=== PATIENT | male | born 1950 | race African-American/Black ===

== ENCOUNTER 2017-12-01 01:59 | Inpatient (IN) ==
[2017-12-01] MEDS ORDERED: hydrALAZINE 20 MG/1 ML VIAL IV STA (02:23)
[2017-12-01] MEDS ORDERED: ALBUTEROL/IPRATROPIUM 3 ML NEB RESP TX STA (02:23)
[2017-12-01] MEDS ORDERED: methylPREDNISolone SOD SUC 125 MG/2 ML VIAL IV STA (02:24)
[2017-12-01 02:57] LABS: Basophils % 0.4 % (0.0-0.8); Eosinophils % 0.4 % (0.00-10.9); Hematocrit 40.8 VOL% (42.0-52.0); Hemoglobin 13.5 GM/DL (14.0-18.0); Immature Granulocytes % 0.4 %; Immature Granulocytes Absolute 0.03 #; Lymphocytes # 1.4 10*3/uL (1.4-4.0); Lymphocytes % 18.2 % (21.2-54.2); Mean Corpuscular HGB Conc 33.1 GM/DL (32-36); Mean Corpuscular Hemoglobin 32 PG (27-34); Mean Corpuscular Volume 96.7 FL (87-102); Mean Platelet Volume 10.8 FL (9.6-12.0); Monocytes # 0.9 10*3/uL (0.11-0.8); Monocytes % 12.6 % (1.7-12.7); Platelet Count 248 T/CUMM (130-400); Red Blood Count 4.22 MC/CUMM (3.8-5.5); Red Cell Distribution Width 14.3 % (9.3-17.3); White Blood Count 7.4 T/CUMM (4-12)
[2017-12-01 02:58] LABS: Albumin 4.1 G/DL (3.4-5.0); Calcium 8.7 MG/DL (8.5-10.1); Osmolality,Calculated 273.7 MOS/KG (273-304); Potassium 3.1 MMOL/L (3.5-5.1)
[2017-12-01] MEDS ORDERED: cefTRIAXone 1,000 MG in SODIUM CHLORIDE 0.9% 100 ML IV STA (03:43)
[2017-12-01] MEDS ORDERED: AZITHROMYCIN 250 MG TABLET PO STA (03:44)
[2017-12-01] MEDS ORDERED: ZALEPLON 5 MG CAPSULE PO PRN (04:40)
[2017-12-01] MEDS ORDERED: MAGNESIUM SULF RIDER 4 GM in PREMIX 1 EACH IV PRN (04:40)
[2017-12-01] MEDS ORDERED: hydrALAZINE 20 MG/1 ML VIAL IV PRN (04:40)
[2017-12-01] MEDS ORDERED: ONDANSETRON 4 MG/2 ML VIAL IV PRN (04:40)
[2017-12-01] MEDS ORDERED: MAGNESIUM SULF RIDER 2 GM in PREMIX 1 EACH IV PRN (04:40)
[2017-12-01] MEDS ORDERED: ALBUTEROL 2.5 MG/3 ML NEB RESP TX PRN (04:40)
[2017-12-01] MEDS ORDERED: ACETAMINOPHEN 325 MG TABLET PO PRN (04:40)
[2017-12-01] MEDS: ALBUTEROL/IPRATROPIUM 3 ML NEB RESP TX SCH ×3 (06:49→19:15)
[2017-12-01] MEDS ORDERED: POTASSIUM CHLORIDE 20 MEQ TABLET PO ONE (09:00)
[2017-12-01] MEDS: predniSONE 20 MG TABLET PO SCH (09:10)
[2017-12-01] MEDS: THIAMINE 100 MG TABLET PO SCH (09:10)
[2017-12-01] MEDS: MULTIVITAMIN (CENTRUM) TABLET PO SCH (09:11)
[2017-12-01] MEDS: amLODIPine 5 MG TABLET PO SCH (09:11)
[2017-12-01] MEDS: ENOXAPARIN 40 MG/0.4 ML SYRINGE SUBCUT SCH (09:11)
[2017-12-01] MEDS: FOLIC ACID 1 MG TABLET PO SCH (09:11)
[2017-12-01] MEDS: PANTOPRAZOLE 40 MG TABLET PO SCH (09:11)
[2017-12-01] MEDS: FUROSEMIDE 20 MG/2 ML VIAL IV SCH ×2 (09:12→15:25)
[2017-12-02] MEDS: ALBUTEROL/IPRATROPIUM 3 ML NEB RESP TX SCH ×4 (00:18→19:17)
[2017-12-02 06:14] LABS: Basophils % 0.3 % (0.0-0.8); Eosinophils % 0.1 % (0.00-10.9); Hematocrit 36.6 VOL% (42.0-52.0); Immature Granulocytes % 0.5 %; Immature Granulocytes Absolute 0.04 #; Lymphocytes # 1.3 10*3/uL (1.4-4.0); Lymphocytes % 16.7 % (21.2-54.2); Mean Corpuscular HGB Conc 32.8 GM/DL (32-36); Mean Corpuscular Hemoglobin 31 PG (27-34); Mean Corpuscular Volume 95.3 FL (87-102); Mean Platelet Volume 11.6 FL (9.6-12.0); Monocytes % 12.2 % (1.7-12.7); Neutrophils # 5.6 10*3/uL (1.4-7.4); Neutrophils % 70.2 % (38.7-73.9); Platelet Count 213 T/CUMM (130-400); Red Blood Count 3.84 MC/CUMM (3.8-5.5); Red Cell Distribution Width 14.4 % (9.3-17.3)
[2017-12-02 06:33] LABS: Albumin 3.5 G/DL (3.4-5.0); Bilirubin,Total 0.7 MG/DL (0.2-1.0); Osmolality,Calculated 273.7 MOS/KG (273-304)
[2017-12-02] MEDS: predniSONE 20 MG TABLET PO SCH (08:25)
[2017-12-02] MEDS: FOLIC ACID 1 MG TABLET PO SCH (08:25)
[2017-12-02] MEDS: MULTIVITAMIN (CENTRUM) TABLET PO SCH (08:25)
[2017-12-02] MEDS: amLODIPine 5 MG TABLET PO SCH (08:25)
[2017-12-02] MEDS: PANTOPRAZOLE 40 MG TABLET PO SCH (08:25)
[2017-12-02] MEDS: THIAMINE 100 MG TABLET PO SCH (08:25)
[2017-12-02] MEDS: POTASSIUM CHLORIDE 20 MEQ TABLET PO PRN ×4 (08:26→14:53)
[2017-12-02] MEDS: ENOXAPARIN 40 MG/0.4 ML SYRINGE SUBCUT SCH (08:26)
[2017-12-02] MEDS: cefTRIAXone 1,000 MG in SYRINGE 1 EACH IV SCH (08:32)
[2017-12-02] MEDS: FUROSEMIDE 20 MG/2 ML VIAL IV SCH ×2 (08:34→16:46)
[2017-12-02] MEDS: AZITHROMYCIN INJ 500 MG in SODIUM CHLORIDE 0.9% 250 ML IV SCH (08:35)
[2017-12-03] MEDS: ALBUTEROL/IPRATROPIUM 3 ML NEB RESP TX SCH ×4 (00:31→19:34)
[2017-12-03] MEDS: FOLIC ACID 1 MG TABLET PO SCH (08:25)
[2017-12-03] MEDS: predniSONE 20 MG TABLET PO SCH (08:25)
[2017-12-03] MEDS: AZITHROMYCIN INJ 500 MG in SODIUM CHLORIDE 0.9% 250 ML IV SCH (08:25)
[2017-12-03] MEDS: THIAMINE 100 MG TABLET PO SCH (08:25)
[2017-12-03] MEDS: amLODIPine 5 MG TABLET PO SCH (08:25)
[2017-12-03] MEDS: PANTOPRAZOLE 40 MG TABLET PO SCH (08:25)
[2017-12-03] MEDS: MULTIVITAMIN (CENTRUM) TABLET PO SCH (08:25)
[2017-12-03] MEDS: FUROSEMIDE 20 MG/2 ML VIAL IV SCH ×2 (08:25→16:52)
[2017-12-03] MEDS: ENOXAPARIN 40 MG/0.4 ML SYRINGE SUBCUT SCH (08:27)
[2017-12-03] MEDS: cefTRIAXone 1,000 MG in SYRINGE 1 EACH IV SCH (08:29)
[2017-12-04] MEDS: ALBUTEROL/IPRATROPIUM 3 ML NEB RESP TX SCH ×4 (00:16→19:12)
[2017-12-04 05:22] LABS: Basophils % 0.1 % (0.0-0.8); Eosinophils % 0.3 % (0.00-10.9); Hemoglobin 11.8 GM/DL (14.0-18.0); Immature Granulocytes % 0.4 %; Immature Granulocytes Absolute 0.03 #; Lymphocytes # 1.3 10*3/uL (1.4-4.0); Lymphocytes % 18.2 % (21.2-54.2); Mean Corpuscular HGB Conc 32.8 GM/DL (32-36); Mean Corpuscular Hemoglobin 32 PG (27-34); Mean Corpuscular Volume 96.3 FL (87-102); Mean Platelet Volume 11.1 FL (9.6-12.0); Monocytes # 0.8 10*3/uL (0.11-0.8); Monocytes % 11.6 % (1.7-12.7); Neutrophils % 69.4 % (38.7-73.9); Platelet Count 175 T/CUMM (130-400); Red Blood Count 3.74 MC/CUMM (3.8-5.5); Red Cell Distribution Width 14.4 % (9.3-17.3); White Blood Count 7.2 T/CUMM (4-12)
[2017-12-04 05:35] LABS: Calcium 8.5 MG/DL (8.5-10.1); Osmolality,Calculated 277.7 MOS/KG (273-304); Potassium 3.4 MMOL/L (3.5-5.1)
[2017-12-04] MEDS: POTASSIUM CHLORIDE 20 MEQ TABLET PO PRN ×3 (08:29→14:28)
[2017-12-04] MEDS: AZITHROMYCIN 250 MG TABLET PO SCH (08:29)
[2017-12-04] MEDS: predniSONE 20 MG TABLET PO SCH (08:30)
[2017-12-04] MEDS: FOLIC ACID 1 MG TABLET PO SCH (08:30)
[2017-12-04] MEDS: THIAMINE 100 MG TABLET PO SCH (08:30)
[2017-12-04] MEDS: MULTIVITAMIN (CENTRUM) TABLET PO SCH (08:30)
[2017-12-04] MEDS: amLODIPine 5 MG TABLET PO SCH (08:30)
[2017-12-04] MEDS: PANTOPRAZOLE 40 MG TABLET PO SCH (08:30)
[2017-12-04] MEDS: ENOXAPARIN 40 MG/0.4 ML SYRINGE SUBCUT SCH (08:30)
[2017-12-04] MEDS: cefTRIAXone 1,000 MG in SYRINGE 1 EACH IV SCH (08:30)
[2017-12-04] MEDS: FUROSEMIDE 20 MG/2 ML VIAL IV SCH ×2 (08:33→17:23)
[2017-12-05] MEDS: ALBUTEROL/IPRATROPIUM 3 ML NEB RESP TX SCH ×2 (01:04→07:18)
[2017-12-05 05:22] LABS: Basophils % 0.1 % (0.0-0.8); Eosinophils % 0.4 % (0.00-10.9); Hematocrit 36.4 VOL% (42.0-52.0); Hemoglobin 11.9 GM/DL (14.0-18.0); Immature Granulocytes % 0.3 %; Immature Granulocytes Absolute 0.02 #; Lymphocytes # 1.4 10*3/uL (1.4-4.0); Lymphocytes % 20.5 % (21.2-54.2); Mean Corpuscular HGB Conc 32.7 GM/DL (32-36); Mean Corpuscular Hemoglobin 32 PG (27-34); Mean Corpuscular Volume 96.8 FL (87-102); Mean Platelet Volume 11.8 FL (9.6-12.0); Monocytes # 0.9 10*3/uL (0.11-0.8); Monocytes % 13.1 % (1.7-12.7); Neutrophils # 4.6 10*3/uL (1.4-7.4); Neutrophils % 65.6 % (38.7-73.9); Platelet Count 217 T/CUMM (130-400); Red Blood Count 3.76 MC/CUMM (3.8-5.5); Red Cell Distribution Width 14.2 % (9.3-17.3)
[2017-12-05 05:50] LABS: Calcium 9.4 MG/DL (8.5-10.1); Osmolality,Calculated 277.8 MOS/KG (273-304); Potassium 3.6 MMOL/L (3.5-5.1)
[2017-12-05 07:44] VITALS: BP 113/76
[2017-12-05] MEDS: THIAMINE 100 MG TABLET PO SCH (08:48)
[2017-12-05] MEDS: FOLIC ACID 1 MG TABLET PO SCH (08:48)
[2017-12-05] MEDS: amLODIPine 5 MG TABLET PO SCH (08:48)
[2017-12-05] MEDS: predniSONE 20 MG TABLET PO SCH (08:48)
[2017-12-05] MEDS: PANTOPRAZOLE 40 MG TABLET PO SCH (08:49)
[2017-12-05] MEDS: ENOXAPARIN 40 MG/0.4 ML SYRINGE SUBCUT SCH (08:49)
[2017-12-05] MEDS: FUROSEMIDE 20 MG/2 ML VIAL IV SCH (08:49)
[2017-12-05] MEDS: AZITHROMYCIN 250 MG TABLET PO SCH (08:49)
[2017-12-05] MEDS: MULTIVITAMIN (CENTRUM) TABLET PO SCH (08:49)
[2017-12-05] MEDS: cefTRIAXone 1,000 MG in SYRINGE 1 EACH IV SCH (08:52)
== END 2017-12-05 11:28 | disposition home or self-care (01) | DRG 291 ==
LOC: N.ED 01:59 → N.EDINP 04:40 → N.2E 05:09
PROVIDERS: ADMIT Internal Medicine; ATTEND Internal Medicine

== ENCOUNTER 2017-12-21 09:57 | Inpatient (IN) ==
[2017-12-21] MEDS ORDERED: ALBUTEROL NEB SOLN 5 MG/ML 20 ML/BOTTLE CONT NEB STA (10:51)
[2017-12-21] MEDS ORDERED: methylPREDNISolone SOD SUC 125 MG/2 ML VIAL IV STA (10:51)
[2017-12-21 11:20] LABS: Basophils % 0.3 % (0.0-0.8); Hematocrit 45.6 VOL% (42.0-52.0); Hemoglobin 15.3 GM/DL (14.0-18.0); Immature Granulocytes % 0.3 %; Immature Granulocytes Absolute 0.02 #; Lymphocytes # 0.7 10*3/uL (1.4-4.0); Lymphocytes % 11.4 % (21.2-54.2); Mean Corpuscular HGB Conc 33.6 GM/DL (32-36); Mean Corpuscular Hemoglobin 31 PG (27-34); Mean Corpuscular Volume 92.7 FL (87-102); Mean Platelet Volume 10.5 FL (9.6-12.0); Monocytes # 0.4 10*3/uL (0.11-0.8); Monocytes % 7.1 % (1.7-12.7); Neutrophils # 4.8 10*3/uL (1.4-7.4); Neutrophils % 80.9 % (38.7-73.9); Platelet Count 171 T/CUMM (130-400); Red Blood Count 4.92 MC/CUMM (3.8-5.5); Red Cell Distribution Width 14.4 % (9.3-17.3); White Blood Count 5.9 T/CUMM (4-12)
[2017-12-21 12:34] LABS: Alanine Aminotransferase 53 U/L (16-61); Albumin 3.9 G/DL (3.4-5.0); Alkaline Phosphatase 72 U/L (45-117); Aspartate Amino Transferase 99 U/L (0-37); Bilirubin,Total < 0.39 MG/DL (0.2-1.0); Blood Urea Nitrogen 16 MG/DL (7-18); Calcium 9.3 MG/DL (8.5-10.1); Glucose 91 MG/DL (74-106); Potassium 3.9 MMOL/L (3.5-5.1); Sodium 136 MMOL/L (136-145); Total Protein 8.3 G/DL (6.4-8.3)
[2017-12-21] MEDS ORDERED: ACETAMINOPHEN 325 MG TABLET PO PRN (13:25)
[2017-12-21] MEDS ORDERED: ZALEPLON 5 MG CAPSULE PO PRN (13:25)
[2017-12-21] MEDS ORDERED: ONDANSETRON 4 MG/2 ML VIAL IV PRN (13:25)
[2017-12-21] MEDS ORDERED: ALBUTEROL/IPRATROPIUM 3 ML NEB RESP TX PRN (13:34)
[2017-12-21] MEDS ORDERED: PNEUMOCOCCAL VACCINE (13 VALENT) 0.5 ML SYRINGE IM ONE (15:25)
[2017-12-21] MEDS ORDERED: INFLUENZA VIRUS VACCINE 0.5 ML SYRINGE IM ONE (15:25)
[2017-12-21] MEDS: ENOXAPARIN 40 MG/0.4 ML SYRINGE SUBCUT SCH (17:06)
[2017-12-21] MEDS: DOXYCYCLINE HYCLATE 100 MG CAPSULE PO SCH ×2 (17:06→21:43)
[2017-12-21] MEDS: methylPREDNISolone SOD SUC 125 MG/2 ML VIAL IV SCH ×2 (17:06→21:43)
[2017-12-21] MEDS: ALBUTEROL/IPRATROPIUM 3 ML NEB RESP TX SCH (19:19)
[2017-12-21] MEDS: DOCUSATE SODIUM 100 MG CAPSULE PO SCH (21:43)
[2017-12-22] MEDS: ALBUTEROL/IPRATROPIUM 3 ML NEB RESP TX SCH ×4 (01:16→18:55)
[2017-12-22 04:25] LABS: Basophils % 0.2 % (0.0-0.8); Hematocrit 40.3 VOL% (42.0-52.0); Hemoglobin 13.4 GM/DL (14.0-18.0); Immature Granulocytes % 0.4 %; Immature Granulocytes Absolute 0.02 #; Lymphocytes # 0.6 10*3/uL (1.4-4.0); Lymphocytes % 11.2 % (21.2-54.2); Mean Corpuscular HGB Conc 33.3 GM/DL (32-36); Mean Corpuscular Hemoglobin 31 PG (27-34); Mean Corpuscular Volume 92.4 FL (87-102); Mean Platelet Volume 10.6 FL (9.6-12.0); Monocytes # 0.4 10*3/uL (0.11-0.8); Monocytes % 7.7 % (1.7-12.7); Neutrophils # 4.1 10*3/uL (1.4-7.4); Neutrophils % 80.5 % (38.7-73.9); Platelet Count 144 T/CUMM (130-400); Red Blood Count 4.36 MC/CUMM (3.8-5.5); Red Cell Distribution Width 14.4 % (9.3-17.3); White Blood Count 5.1 T/CUMM (4-12)
[2017-12-22 04:52] LABS: Albumin 3.6 G/DL (3.4-5.0); Bilirubin,Total 0.4 MG/DL (0.2-1.0); Calcium 9.6 MG/DL (8.5-10.1); Osmolality,Calculated 277.8 MOS/KG (273-304); Potassium 3.7 MMOL/L (3.5-5.1); Total Protein 7.5 G/DL (6.4-8.3)
[2017-12-22] MEDS: methylPREDNISolone SOD SUC 125 MG/2 ML VIAL IV SCH (06:19)
[2017-12-22] MEDS: THIAMINE 100 MG TABLET PO SCH (08:26)
[2017-12-22] MEDS: MULTIVITAMIN (CENTRUM) TABLET PO SCH (08:26)
[2017-12-22] MEDS: DOCUSATE SODIUM 100 MG CAPSULE PO SCH ×2 (08:26→21:49)
[2017-12-22] MEDS: FOLIC ACID 1 MG TABLET PO SCH (08:26)
[2017-12-22] MEDS: DOXYCYCLINE HYCLATE 100 MG CAPSULE PO SCH ×2 (08:26→21:49)
[2017-12-22] MEDS: amLODIPine 5 MG TABLET PO SCH (08:26)
[2017-12-22] MEDS: ENOXAPARIN 40 MG/0.4 ML SYRINGE SUBCUT SCH (08:27)
[2017-12-22] MEDS: PANTOPRAZOLE 40 MG TABLET PO SCH (08:27)
[2017-12-22] MEDS ORDERED: PANTOPRAZOLE 40 MG TABLET PO SCH (09:00)
[2017-12-22] MEDS: methylPREDNISolone SOD SUC 40 MG/1 ML VIAL IV SCH ×2 (14:15→21:49)
[2017-12-22] MEDS: CEFEPIME 1,000 MG in SODIUM CHLORIDE 0.9% 100 ML IV SCH (14:18)
[2017-12-23] MEDS: ALBUTEROL/IPRATROPIUM 3 ML NEB RESP TX SCH ×4 (00:05→19:16)
[2017-12-23] MEDS: methylPREDNISolone SOD SUC 40 MG/1 ML VIAL IV SCH (06:25)
[2017-12-23] MEDS: THIAMINE 100 MG TABLET PO SCH (09:13)
[2017-12-23] MEDS: PANTOPRAZOLE 40 MG TABLET PO SCH (09:13)
[2017-12-23] MEDS: MULTIVITAMIN (CENTRUM) TABLET PO SCH (09:13)
[2017-12-23] MEDS: DOXYCYCLINE HYCLATE 100 MG CAPSULE PO SCH ×2 (09:13→23:03)
[2017-12-23] MEDS: FOLIC ACID 1 MG TABLET PO SCH (09:13)
[2017-12-23] MEDS: amLODIPine 5 MG TABLET PO SCH (09:14)
[2017-12-23] MEDS: CEFEPIME 1,000 MG in SODIUM CHLORIDE 0.9% 100 ML IV SCH ×2 (09:14→23:02)
[2017-12-23] MEDS: DOCUSATE SODIUM 100 MG CAPSULE PO SCH ×2 (09:14→23:02)
[2017-12-23] MEDS: ENOXAPARIN 40 MG/0.4 ML SYRINGE SUBCUT SCH (09:14)
[2017-12-23] MEDS: predniSONE 20 MG TABLET PO SCH (11:03)
[2017-12-24] MEDS: ALBUTEROL/IPRATROPIUM 3 ML NEB RESP TX SCH ×2 (00:40→07:29)
[2017-12-24 05:31] LABS: Hemoglobin 12.4 GM/DL (14.0-18.0); Immature Granulocytes % 0.4 %; Immature Granulocytes Absolute 0.03 #; Lymphocytes # 1.5 10*3/uL (1.4-4.0); Lymphocytes % 20.4 % (21.2-54.2); Mean Corpuscular HGB Conc 32.6 GM/DL (32-36); Mean Corpuscular Hemoglobin 30 PG (27-34); Mean Corpuscular Volume 92.5 FL (87-102); Mean Platelet Volume 11.7 FL (9.6-12.0); Monocytes # 0.8 10*3/uL (0.11-0.8); Neutrophils # 5.1 10*3/uL (1.4-7.4); Neutrophils % 68.2 % (38.7-73.9); Platelet Count 135 T/CUMM (130-400); Red Blood Count 4.11 MC/CUMM (3.8-5.5); Red Cell Distribution Width 14.3 % (9.3-17.3); White Blood Count 7.5 T/CUMM (4-12)
[2017-12-24 05:53] LABS: Osmolality,Calculated 279.5 MOS/KG (273-304); Potassium 3.2 MMOL/L (3.5-5.1)
[2017-12-24 05:54] LABS: Hypochromasia 1+
[2017-12-24 05:55] LABS: Ovalocytes Slight; Platelet Estimate Normal
[2017-12-24 07:45] VITALS: BP 126/85
[2017-12-24] MEDS: DOXYCYCLINE HYCLATE 100 MG CAPSULE PO SCH (09:03)
[2017-12-24] MEDS: FOLIC ACID 1 MG TABLET PO SCH (09:03)
[2017-12-24] MEDS: THIAMINE 100 MG TABLET PO SCH (09:03)
[2017-12-24] MEDS: predniSONE 20 MG TABLET PO SCH (09:03)
[2017-12-24] MEDS: DOCUSATE SODIUM 100 MG CAPSULE PO SCH (09:03)
[2017-12-24] MEDS: amLODIPine 5 MG TABLET PO SCH (09:03)
[2017-12-24] MEDS: MULTIVITAMIN (CENTRUM) TABLET PO SCH (09:03)
[2017-12-24] MEDS: PANTOPRAZOLE 40 MG TABLET PO SCH (09:03)
[2017-12-24] MEDS: ENOXAPARIN 40 MG/0.4 ML SYRINGE SUBCUT SCH (09:03)
[2017-12-24] MEDS: CEFEPIME 1,000 MG in SODIUM CHLORIDE 0.9% 100 ML IV SCH (09:03)
[2017-12-24] MEDS ORDERED: POTASSIUM CHLORIDE 20 MEQ TABLET PO ONE (09:37)
== END 2017-12-24 10:48 | disposition home or self-care (01) | DRG 192 ==
LOC: N.ED 09:57 → N.EDINP 13:25 → SUATTDRO 13:25 → N.2W 14:54 → N.2E 15:03
PROVIDERS: ADMIT Family Medicine; ATTEND Family Medicine

== ENCOUNTER 2019-01-09 15:54 | Inpatient (IN) ==
[2019-01-09] MEDS ORDERED: methylPREDNISolone SOD SUC 125 MG/2 ML VIAL IV STA (16:36)
[2019-01-09] MEDS ORDERED: ONDANSETRON 4 MG/2 ML VIAL IV STA (16:36)
[2019-01-09] MEDS ORDERED: FUROSEMIDE 40 MG/4 ML VIAL IV STA (16:36)
[2019-01-09] MEDS ORDERED: AZITHROMYCIN INJ 500 MG in SODIUM CHLORIDE 0.9% 250 ML IV STA (16:36)
[2019-01-09 16:51] LABS: Basophils % 0.3 % (0.0-0.8); Eosinophils # 0.1 10*3/uL (0.0-0.87); Hematocrit 35.5 VOL% (42.0-52.0); Hemoglobin 10.9 GM/DL (14.0-18.0); Immature Granulocytes % 0.3 %; Immature Granulocytes Absolute 0.02 #; Lymphocytes # 1.3 10*3/uL (1.4-4.0); Lymphocytes % 21.6 % (21.2-54.2); Mean Corpuscular HGB Conc 30.7 GM/DL (32-36); Mean Corpuscular Volume 98.9 FL (87-102); Mean Platelet Volume 10.7 FL (9.6-12.0); Monocytes % 13.5 % (1.7-12.7); Neutrophils % 63.3 % (38.7-73.9); Platelet Count 227 T/CUMM (130-400); Red Blood Count 3.59 MC/CUMM (3.8-5.5); Red Cell Distribution Width 14.6 % (9.3-17.3); White Blood Count 6.2 T/CUMM (4-12)
[2019-01-09] MEDS ORDERED: ALBUTEROL 2.5 MG/3 ML NEB RESP TX SCH (17:00)
[2019-01-09 17:13] LABS: Albumin 3.3 G/DL (3.4-5.0); Bilirubin,Total 0.5 MG/DL (0.2-1.0); Osmolality,Calculated 280.1 MOS/KG (273-304); Total Protein 7.3 G/DL (6.4-8.3)
[2019-01-09 17:14] LABS: Troponin I 0.026 NG/ML (0.00-0.045)
[2019-01-09 17:17] LABS: Hypochromasia Slight; Macrocytosis Slight; Ovalocytes Few
[2019-01-09 17:18] LABS: Platelet Estimate Adequate
[2019-01-09 17:43] LABS: Apearance,Urine CLEAR (Clear); Bacteria,Urine Occasional /HPF (Few); Bilirubin,Urine Negative (Negative); Blood, Urine Negative (Negative); Glucose,Urine (UA) Negative (Negative); Ketones,Urine Negative (Negative); Mucus,Urine Few /LPF (Occasional); Nitrite,Urine Negative (Negative); Protein,Urine Negative; RBC,Urine 1 /HPF (0-4); Urine Color Yellow (Yellow); Urine Specific Gravity 1.011 (1.001-1.035); Urine Urobilinogen < 2.0 EU/DL (0.2-1.0); WBC,Urine <1 /HPF (0-6)
[2019-01-09] MEDS ORDERED: ONDANSETRON 4 MG/2 ML VIAL IV PRN (17:56)
[2019-01-09 18:23] LABS: PT Patient Result 10.8 SECS (9.6-12.2); Partial Thromboplastin Time 23.1 SECS (20.8-36.0)
[2019-01-09] MEDS ORDERED: MAGNESIUM SULF RIDER 2 GM in PREMIX 1 EACH IV PRN (18:43)
[2019-01-09] MEDS ORDERED: MAGNESIUM SULF RIDER 4 GM in PREMIX 1 EACH IV PRN (18:43)
[2019-01-09] MEDS ORDERED: ALBUTEROL/IPRATROPIUM 3 ML NEB RESP TX SCH (19:00)
[2019-01-09] MEDS: LEVALBUTEROL 1.25 MG/3 ML NEB RESP TX SCH ×2 (19:40→23:08)
[2019-01-09] MEDS ORDERED: ENOXAPARIN 40 MG/0.4 ML SYRINGE SUBCUT SCH (21:00)
[2019-01-09] MEDS: POTASSIUM CHLORIDE 20 MEQ PACK PO SCH (21:01)
[2019-01-09] MEDS: cefTRIAXone 1,000 MG in SYRINGE 1 EACH IV SCH (21:01)
[2019-01-10] MEDS: methylPREDNISolone SOD SUC 40 MG/1 ML VIAL IV SCH ×3 (00:14→17:27)
[2019-01-10] MEDS: LEVALBUTEROL 1.25 MG/3 ML NEB RESP TX SCH ×4 (02:12→23:18)
[2019-01-10 06:56] LABS: Hematocrit 30.2 VOL% (42.0-52.0); Hemoglobin 9.3 GM/DL (14.0-18.0); Immature Granulocytes % 0.2 %; Immature Granulocytes Absolute 0.01 #; Lymphocytes # 0.4 10*3/uL (1.4-4.0); Lymphocytes % 9.1 % (21.2-54.2); Mean Corpuscular HGB Conc 30.8 GM/DL (32-36); Mean Corpuscular Volume 97.4 FL (87-102); Mean Platelet Volume 10.3 FL (9.6-12.0); Monocytes % 5.5 % (1.7-12.7); Neutrophils % 85.2 % (38.7-73.9); Platelet Count 290 T/CUMM (130-400); Red Cell Distribution Width 14.7 % (9.3-17.3); White Blood Count 4.5 T/CUMM (4-12)
[2019-01-10 07:19] LABS: Albumin 3.1 G/DL (3.4-5.0); Bilirubin,Total 0.5 MG/DL (0.2-1.0); Calcium 8.7 MG/DL (8.5-10.1); Osmolality,Calculated 287.3 MOS/KG (273-304)
[2019-01-10] MEDS ORDERED: LORazepam 1 MG TABLET PO PRN (08:38)
[2019-01-10 08:54] LABS: Risk Ratio 1.97; VLDL CHOLESTEROL 10.8 MG/DL
[2019-01-10] MEDS: FUROSEMIDE 40 MG/4 ML VIAL IV SCH ×2 (10:10→17:26)
[2019-01-10] MEDS: MULTIVITAMIN (CENTRUM) TABLET PO SCH (10:10)
[2019-01-10] MEDS: FOLIC ACID 1 MG TABLET PO SCH (10:10)
[2019-01-10] MEDS: MAGNESIUM OXIDE 400 MG TABLET PO SCH (10:10)
[2019-01-10] MEDS: PANTOPRAZOLE 40 MG TABLET PO SCH (10:10)
[2019-01-10] MEDS: POTASSIUM CHLORIDE 20 MEQ PACK PO SCH ×2 (10:11→21:12)
[2019-01-10] MEDS: ASPIRIN EC 81 MG TABLET PO SCH (10:28)
[2019-01-10] MEDS: NICOTINE 14 MG/24 HR PATCH TRANSDERM SCH (10:28)
[2019-01-10] MEDS: SPIRONOLACTONE 25 MG TABLET PO SCH (10:28)
[2019-01-10] MEDS: SACUBITRIL/VALSARTAN 49-51 MG TABLET PO SCH ×2 (10:28→21:36)
[2019-01-10] MEDS: CLOPIDOGREL 75 MG TABLET PO SCH (10:29)
[2019-01-10] MEDS: carvediloL 3.125 MG TABLET PO SCH ×2 (10:29→21:36)
[2019-01-10] MEDS: THIAMINE 100 MG TABLET PO SCH (10:35)
[2019-01-10] MEDS: AZITHROMYCIN INJ 500 MG in SODIUM CHLORIDE 0.9% 250 ML IV SCH (18:49)
[2019-01-10] MEDS ORDERED: ATORVASTATIN 40 MG TABLET PO SCH (21:00)
[2019-01-10] MEDS: cefTRIAXone 1,000 MG in SYRINGE 1 EACH IV SCH (21:12)
[2019-01-11] MEDS: methylPREDNISolone SOD SUC 40 MG/1 ML VIAL IV SCH ×3 (01:15→17:16)
[2019-01-11 06:34] LABS: Hematocrit 27.6 VOL% (42.0-52.0); Hemoglobin 8.6 GM/DL (14.0-18.0); Immature Granulocytes % 0.3 %; Immature Granulocytes Absolute 0.02 #; Lymphocytes # 0.5 10*3/uL (1.4-4.0); Lymphocytes % 6.3 % (21.2-54.2); Mean Corpuscular HGB Conc 31.2 GM/DL (32-36); Mean Corpuscular Volume 97.5 FL (87-102); Neutrophils % 87.4 % (38.7-73.9); Platelet Count 287 T/CUMM (130-400); Red Blood Count 2.83 MC/CUMM (3.8-5.5); Red Cell Distribution Width 14.6 % (9.3-17.3); White Blood Count 7.6 T/CUMM (4-12)
[2019-01-11 06:52] LABS: Calcium 8.5 MG/DL (8.5-10.1); Osmolality,Calculated 285.4 MOS/KG (273-304)
[2019-01-11] MEDS: LEVALBUTEROL 1.25 MG/3 ML NEB RESP TX SCH ×2 (07:50→16:22)
[2019-01-11] MEDS: FUROSEMIDE 40 MG/4 ML VIAL IV SCH (08:35)
[2019-01-11] MEDS: NICOTINE 14 MG/24 HR PATCH TRANSDERM SCH (08:35)
[2019-01-11] MEDS: SACUBITRIL/VALSARTAN 49-51 MG TABLET PO SCH ×2 (08:36→21:38)
[2019-01-11] MEDS: CLOPIDOGREL 75 MG TABLET PO SCH (08:37)
[2019-01-11] MEDS: FOLIC ACID 1 MG TABLET PO SCH (08:37)
[2019-01-11] MEDS: POTASSIUM CHLORIDE 20 MEQ PACK PO SCH ×2 (08:37→21:39)
[2019-01-11] MEDS: ASPIRIN EC 81 MG TABLET PO SCH (08:37)
[2019-01-11] MEDS: MAGNESIUM OXIDE 400 MG TABLET PO SCH (08:37)
[2019-01-11] MEDS: carvediloL 3.125 MG TABLET PO SCH ×2 (08:37→21:38)
[2019-01-11] MEDS: SPIRONOLACTONE 25 MG TABLET PO SCH (08:38)
[2019-01-11] MEDS: MULTIVITAMIN (CENTRUM) TABLET PO SCH (08:39)
[2019-01-11] MEDS: PANTOPRAZOLE 40 MG TABLET PO SCH (08:39)
[2019-01-11] MEDS: THIAMINE 100 MG TABLET PO SCH (08:39)
[2019-01-11] MEDS: AZITHROMYCIN INJ 500 MG in SODIUM CHLORIDE 0.9% 250 ML IV SCH (17:16)
[2019-01-11] MEDS: cefTRIAXone 1,000 MG in SYRINGE 1 EACH IV SCH (21:32)
[2019-01-11] MEDS: ATORVASTATIN 10 MG TABLET PO SCH (21:39)
[2019-01-12] MEDS: LEVALBUTEROL 1.25 MG/3 ML NEB RESP TX SCH ×3 (00:29→15:55)
[2019-01-12] MEDS: methylPREDNISolone SOD SUC 40 MG/1 ML VIAL IV SCH ×4 (01:48→21:31)
[2019-01-12 05:24] LABS: Hematocrit 27.6 VOL% (42.0-52.0); Hemoglobin 8.5 GM/DL (14.0-18.0); Immature Granulocytes % 0.5 %; Immature Granulocytes Absolute 0.04 #; Lymphocytes # 0.5 10*3/uL (1.4-4.0); Lymphocytes % 6.4 % (21.2-54.2); Mean Corpuscular HGB Conc 30.8 GM/DL (32-36); Mean Corpuscular Volume 96.8 FL (87-102); Mean Platelet Volume 10.9 FL (9.6-12.0); Monocytes % 6.9 % (1.7-12.7); Neutrophils % 86.2 % (38.7-73.9); Platelet Count 260 T/CUMM (130-400); Red Blood Count 2.85 MC/CUMM (3.8-5.5); Red Cell Distribution Width 14.7 % (9.3-17.3); White Blood Count 8.2 T/CUMM (4-12)
[2019-01-12 05:58] LABS: Calcium 8.4 MG/DL (8.5-10.1); Osmolality,Calculated 287.3 MOS/KG (273-304)
[2019-01-12] MEDS: NICOTINE 14 MG/24 HR PATCH TRANSDERM SCH (09:23)
[2019-01-12] MEDS: CLOPIDOGREL 75 MG TABLET PO SCH (09:24)
[2019-01-12] MEDS: ASPIRIN EC 81 MG TABLET PO SCH (09:24)
[2019-01-12] MEDS: carvediloL 3.125 MG TABLET PO SCH ×2 (09:24→21:32)
[2019-01-12] MEDS: FOLIC ACID 1 MG TABLET PO SCH (09:24)
[2019-01-12] MEDS: MULTIVITAMIN (CENTRUM) TABLET PO SCH (09:24)
[2019-01-12] MEDS: POTASSIUM CHLORIDE 20 MEQ PACK PO SCH ×2 (09:24→21:35)
[2019-01-12] MEDS: PANTOPRAZOLE 40 MG TABLET PO SCH (09:24)
[2019-01-12] MEDS: SPIRONOLACTONE 25 MG TABLET PO SCH (09:24)
[2019-01-12] MEDS: MAGNESIUM OXIDE 400 MG TABLET PO SCH (09:25)
[2019-01-12] MEDS: THIAMINE 100 MG TABLET PO SCH (09:25)
[2019-01-12] MEDS: SACUBITRIL/VALSARTAN 49-51 MG TABLET PO SCH ×2 (10:11→21:32)
[2019-01-12] MEDS: FUROSEMIDE 40 MG TABLET PO SCH (10:12)
[2019-01-12] MEDS: AZITHROMYCIN INJ 500 MG in SODIUM CHLORIDE 0.9% 250 ML IV SCH (17:54)
[2019-01-12] MEDS: cefTRIAXone 1,000 MG in SYRINGE 1 EACH IV SCH (21:25)
[2019-01-12] MEDS: ATORVASTATIN 10 MG TABLET PO SCH (21:32)
[2019-01-13] MEDS: LEVALBUTEROL 1.25 MG/3 ML NEB RESP TX SCH ×3 (00:41→15:28)
[2019-01-13 05:50] LABS: Hematocrit 27.4 VOL% (42.0-52.0); Hemoglobin 8.5 GM/DL (14.0-18.0); Immature Granulocytes % 0.4 %; Immature Granulocytes Absolute 0.03 #; Lymphocytes # 0.9 10*3/uL (1.4-4.0); Lymphocytes % 10.8 % (21.2-54.2); Mean Corpuscular Volume 96.5 FL (87-102); Mean Platelet Volume 11.2 FL (9.6-12.0); Monocytes % 11.2 % (1.7-12.7); Neutrophils % 77.6 % (38.7-73.9); Platelet Count 251 T/CUMM (130-400); Red Blood Count 2.84 MC/CUMM (3.8-5.5); Red Cell Distribution Width 14.4 % (9.3-17.3)
[2019-01-13 06:17] LABS: Calcium 8.3 MG/DL (8.5-10.1); Osmolality,Calculated 287.1 MOS/KG (273-304)
[2019-01-13] MEDS: MULTIVITAMIN (CENTRUM) TABLET PO SCH (08:20)
[2019-01-13] MEDS: POTASSIUM CHLORIDE 20 MEQ PACK PO SCH ×2 (08:20→20:59)
[2019-01-13] MEDS: NICOTINE 14 MG/24 HR PATCH TRANSDERM SCH (08:20)
[2019-01-13] MEDS: PANTOPRAZOLE 40 MG TABLET PO SCH (08:20)
[2019-01-13] MEDS: SACUBITRIL/VALSARTAN 49-51 MG TABLET PO SCH ×2 (08:21→20:59)
[2019-01-13] MEDS: CLOPIDOGREL 75 MG TABLET PO SCH (08:21)
[2019-01-13] MEDS: SPIRONOLACTONE 25 MG TABLET PO SCH (08:21)
[2019-01-13] MEDS: ASPIRIN EC 81 MG TABLET PO SCH (08:21)
[2019-01-13] MEDS: carvediloL 3.125 MG TABLET PO SCH ×2 (08:21→20:59)
[2019-01-13] MEDS: FOLIC ACID 1 MG TABLET PO SCH (08:21)
[2019-01-13] MEDS: MAGNESIUM OXIDE 400 MG TABLET PO SCH (08:21)
[2019-01-13] MEDS: THIAMINE 100 MG TABLET PO SCH (08:21)
[2019-01-13] MEDS: FUROSEMIDE 40 MG TABLET PO SCH (08:22)
[2019-01-13] MEDS: methylPREDNISolone SOD SUC 40 MG/1 ML VIAL IV SCH ×2 (12:34→20:58)
[2019-01-13] MEDS: AZITHROMYCIN INJ 500 MG in SODIUM CHLORIDE 0.9% 250 ML IV SCH (17:22)
[2019-01-13] MEDS: cefTRIAXone 1,000 MG in SYRINGE 1 EACH IV SCH (20:53)
[2019-01-13] MEDS: ATORVASTATIN 10 MG TABLET PO SCH (20:59)
[2019-01-14] MEDS: LEVALBUTEROL 1.25 MG/3 ML NEB RESP TX SCH ×4 (00:02→23:45)
[2019-01-14 06:17] LABS: Hemoglobin 8.8 GM/DL (14.0-18.0); Immature Granulocytes % 0.4 %; Immature Granulocytes Absolute 0.03 #; Lymphocytes # 0.8 10*3/uL (1.4-4.0); Lymphocytes % 11.8 % (21.2-54.2); Mean Corpuscular HGB Conc 32.6 GM/DL (32-36); Mean Corpuscular Volume 95.7 FL (87-102); Mean Platelet Volume 11.1 FL (9.6-12.0); Monocytes % 11.1 % (1.7-12.7); Neutrophils % 76.7 % (38.7-73.9); Platelet Count 240 T/CUMM (130-400); Red Blood Count 2.82 MC/CUMM (3.8-5.5); Red Cell Distribution Width 14.4 % (9.3-17.3); White Blood Count 6.8 T/CUMM (4-12)
[2019-01-14 06:43] LABS: Calcium 8.4 MG/DL (8.5-10.1); Osmolality,Calculated 281.5 MOS/KG (273-304)
[2019-01-14] MEDS ORDERED: DIAZEPAM 5 MG TABLET PO ONE (07:08)
[2019-01-14] MEDS ORDERED: diphenhydrAMINE CAP 25 MG CAPSULE PO ONE (07:08)
[2019-01-14] MEDS ORDERED: SODIUM CHLORIDE 0.9% 1,000 ML IV SCH (07:30)
[2019-01-14] MEDS: ASPIRIN EC 81 MG TABLET PO SCH (08:35)
[2019-01-14] MEDS: PANTOPRAZOLE 40 MG TABLET PO SCH (08:35)
[2019-01-14] MEDS: carvediloL 3.125 MG TABLET PO SCH ×2 (08:36→20:36)
[2019-01-14] MEDS: CLOPIDOGREL 75 MG TABLET PO SCH (08:36)
[2019-01-14] MEDS: SACUBITRIL/VALSARTAN 49-51 MG TABLET PO SCH ×2 (08:36→20:37)
[2019-01-14] MEDS: SPIRONOLACTONE 25 MG TABLET PO SCH (08:48)
[2019-01-14] MEDS ORDERED: ERGOCALCIFEROL 50,000 UNIT CAPSULE PO SCH (09:00)
[2019-01-14] MEDS ORDERED: NITROGLYCERIN DRIP 50 MG/250 ML BOTTLE IV ONE (09:13)
[2019-01-14] MEDS ORDERED: VERAPAMIL 5 MG/2 ML VIAL ONE (09:13)
[2019-01-14] MEDS ORDERED: HEPARIN/NACL 0.9% 2 UNITS/ML 1,000 ML IV ONE (09:13)
[2019-01-14] MEDS ORDERED: LIDOCAINE 1% 20 ML VIAL ONE (09:13)
[2019-01-14] MEDS ORDERED: HYDROmorphone 2 MG/1 ML VIAL ONE (09:14)
[2019-01-14] MEDS ORDERED: MIDAZOLAM 2 MG/2 ML VIAL ONE (09:14)
[2019-01-14] MEDS ORDERED: fentaNYL 100 MCG/2 ML VIAL ONE (09:58)
[2019-01-14] MEDS ORDERED: ENOXAPARIN 60 MG/0.6 ML SYRINGE ONE (10:02)
[2019-01-14] MEDS: FUROSEMIDE 40 MG TABLET PO SCH (12:21)
[2019-01-14] MEDS: MAGNESIUM OXIDE 400 MG TABLET PO SCH (12:22)
[2019-01-14] MEDS: MULTIVITAMIN (CENTRUM) TABLET PO SCH (12:22)
[2019-01-14] MEDS: NICOTINE 14 MG/24 HR PATCH TRANSDERM SCH (12:22)
[2019-01-14] MEDS: FOLIC ACID 1 MG TABLET PO SCH (12:22)
[2019-01-14] MEDS: POTASSIUM CHLORIDE 20 MEQ PACK PO SCH ×2 (12:22→20:36)
[2019-01-14] MEDS: methylPREDNISolone SOD SUC 40 MG/1 ML VIAL IV SCH ×2 (12:23→20:38)
[2019-01-14] MEDS: THIAMINE 100 MG TABLET PO SCH (12:23)
[2019-01-14] MEDS: AZITHROMYCIN INJ 500 MG in SODIUM CHLORIDE 0.9% 250 ML IV SCH (19:45)
[2019-01-14] MEDS: cefTRIAXone 1,000 MG in SYRINGE 1 EACH IV SCH (20:37)
[2019-01-15 05:19] LABS: Hemoglobin 9.7 GM/DL (14.0-18.0); Immature Granulocytes % 0.2 %; Immature Granulocytes Absolute 0.02 #; Lymphocytes # 0.8 10*3/uL (1.4-4.0); Lymphocytes % 9.6 % (21.2-54.2); Mean Corpuscular HGB Conc 31.3 GM/DL (32-36); Mean Platelet Volume 11.3 FL (9.6-12.0); Monocytes % 8.5 % (1.7-12.7); Neutrophils % 81.7 % (38.7-73.9); Platelet Count 320 T/CUMM (130-400); Red Blood Count 3.23 MC/CUMM (3.8-5.5); Red Cell Distribution Width 14.5 % (9.3-17.3); White Blood Count 8.3 T/CUMM (4-12)
[2019-01-15 05:34] LABS: Calcium 8.4 MG/DL (8.5-10.1); Osmolality,Calculated 288.1 MOS/KG (273-304)
[2019-01-15] MEDS: LEVALBUTEROL 1.25 MG/3 ML NEB RESP TX SCH (08:05)
[2019-01-15] MEDS: POTASSIUM CHLORIDE 20 MEQ PACK PO SCH (09:47)
[2019-01-15] MEDS: PANTOPRAZOLE 40 MG TABLET PO SCH (09:47)
[2019-01-15] MEDS: ASPIRIN EC 81 MG TABLET PO SCH (09:47)
[2019-01-15] MEDS: MULTIVITAMIN (CENTRUM) TABLET PO SCH (09:47)
[2019-01-15] MEDS: FOLIC ACID 1 MG TABLET PO SCH (09:48)
[2019-01-15] MEDS: MAGNESIUM OXIDE 400 MG TABLET PO SCH (09:48)
[2019-01-15] MEDS: NICOTINE 14 MG/24 HR PATCH TRANSDERM SCH (09:48)
[2019-01-15] MEDS: SACUBITRIL/VALSARTAN 49-51 MG TABLET PO SCH (09:49)
[2019-01-15] MEDS: SPIRONOLACTONE 25 MG TABLET PO SCH (09:49)
[2019-01-15] MEDS: carvediloL 3.125 MG TABLET PO SCH (09:49)
[2019-01-15] MEDS: FUROSEMIDE 40 MG TABLET PO SCH (09:51)
[2019-01-15] MEDS: THIAMINE 100 MG TABLET PO SCH (09:51)
[2019-01-15] MEDS: methylPREDNISolone SOD SUC 40 MG/1 ML VIAL IV SCH (09:52)
[2019-01-15 12:25] VITALS: BP 94/56
== END 2019-01-15 12:56 | disposition home health service (06) | DRG 286 ==
LOC: N.ED 15:54 → N.EDINP 17:56 → SUATTDRO 17:56 → N.5E 18:27
PROVIDERS: ADMIT Internal Medicine; ATTEND Internal Medicine
PROC: CLCCHCL (ICD-10-PCS; 2019-01-14 09:45)

== ENCOUNTER 2019-04-19 14:19 | Inpatient (IN) ==
[2019-04-19] MEDS ORDERED: SODIUM CHLORIDE 0.9% 1,000 ML IV STA (14:46)
[2019-04-19] MEDS ORDERED: ONDANSETRON 4 MG/2 ML VIAL IV STA (14:46)
[2019-04-19] MEDS ORDERED: PANTOPRAZOLE 40 MG VIAL IV STA (14:46)
[2019-04-19 15:18] LABS: Basophils % 0.7 % (0.0-0.8); Eosinophils # 0.1 10*3/uL (0.0-0.87); Eosinophils % 1.5 % (0.00-10.9); Hemoglobin 10.5 GM/DL (14.0-18.0); Immature Granulocytes % 0.2 %; Immature Granulocytes Absolute 0.01 #; Lymphocytes # 1.3 10*3/uL (1.4-4.0); Lymphocytes % 32.5 % (21.2-54.2); Mean Corpuscular HGB Conc 31.8 GM/DL (32-36); Mean Corpuscular Volume 83.5 FL (87-102); Monocytes % 19.7 % (1.7-12.7); Neutrophils % 45.4 % (38.7-73.9); Platelet Count 223 T/CUMM (130-400); Red Blood Count 3.95 MC/CUMM (3.8-5.5); White Blood Count 4.1 T/CUMM (4-12)
[2019-04-19 15:27] LABS: PT Patient Result 10.4 SECS (9.6-12.2); Partial Thromboplastin Time 24.6 SECS (20.8-36.0)
[2019-04-19 15:32] LABS: Alanine Aminotransferase 56 U/L (16-61); Albumin 3.1 G/DL (3.4-5.0); Alkaline Phosphatase 87 U/L (45-117); Aspartate Amino Transferase 164 U/L (0-37); Blood Urea Nitrogen 9 MG/DL (7-18); Calcium 8.9 MG/DL (8.5-10.1); Estimated Glom Filtration Rate 112 ML/MIN; Glucose 57 MG/DL (74-106); Osmolality,Calculated 273.5 MOS/KG (273-304); Total Protein 6.5 G/DL (6.4-8.3)
[2019-04-19] MEDS ORDERED: POTASSIUM BICARB EFFERVESCENT 25 MEQ TABLET PO ONE (15:33)
[2019-04-19] MEDS ORDERED: MAGNESIUM SULF RIDER 1 GM in PREMIX 1 EACH IV ONE (16:39)
[2019-04-19] MEDS ORDERED: POTASSIUM CHLORIDE 20 MEQ TABLET PO ONE (16:40)
[2019-04-19] MEDS ORDERED: SODIUM CHLORIDE 0.9% 1,000 ML IV PRN (16:42)
[2019-04-19] MEDS ORDERED: LORazepam 1 MG TABLET PO PRN (17:10)
[2019-04-19 17:35] LABS: Eosinophils 2 % (0-10); Hypochromasia Slight; Lymphocytes 31 % (20-55); Platelet Estimate Adequate; Segmented Neutrophils 53 % (50-85); Total Cells Counted 100
[2019-04-19 17:36] LABS: Target Cells Few
[2019-04-19] MEDS: PANTOPRAZOLE 40 MG VIAL IV SCH (21:05)
[2019-04-19] MEDS: POTASSIUM CHLORIDE 20 MEQ TABLET PO PRN ×2 (21:05→23:20)
[2019-04-20] MEDS: POTASSIUM CHLORIDE 20 MEQ TABLET PO PRN ×2 (01:08→03:35)
[2019-04-20 06:35] LABS: Hematocrit 29.2 VOL% (42.0-52.0); Hemoglobin 9.3 GM/DL (14.0-18.0)
[2019-04-20 06:54] LABS: Albumin 2.6 G/DL (3.4-5.0); Bilirubin,Total 1.6 MG/DL (0.2-1.0); Calcium 8.4 MG/DL (8.5-10.1); Osmolality,Calculated 278.3 MOS/KG (273-304); Total Protein 5.5 G/DL (6.4-8.3)
[2019-04-20] MEDS: THIAMINE 100 MG TABLET PO SCH (10:23)
[2019-04-20] MEDS: PANTOPRAZOLE 40 MG VIAL IV SCH ×2 (10:23→20:41)
[2019-04-20] MEDS: MULTIVITAMIN (CENTRUM) TABLET PO SCH (10:23)
[2019-04-20] MEDS: FOLIC ACID 1 MG TABLET PO SCH (10:24)
[2019-04-20 10:43] LABS: Hematocrit 33.2 VOL% (42.0-52.0); Hemoglobin 10.3 GM/DL (14.0-18.0)
[2019-04-20] MEDS ORDERED: NICOTINE 21 MG/24 HR PATCH TRANSDERM PRN (12:52)
[2019-04-20] MEDS ORDERED: ALBUTEROL 2.5 MG/3 ML NEB RESP TX PRN (12:55)
[2019-04-20] MEDS: FUROSEMIDE 40 MG TABLET PO SCH (14:07)
[2019-04-20] MEDS: carvediloL 3.125 MG TABLET PO SCH ×2 (14:07→18:34)
[2019-04-20] MEDS: DEXTROSE 5% NACL 0.45% 1,000 ML IV SCH (14:13)
[2019-04-20 17:08] LABS: Hemoglobin 9.6 GM/DL (14.0-18.0)
[2019-04-20] MEDS: SACUBITRIL/VALSARTAN 49-51 MG TABLET PO SCH (20:41)
[2019-04-21 01:39] LABS: Barbiturates Screen,Urine Negative (Negative); Benzodiazepines Screen,Urine Negative (Negative); Cannabinoid Screen,Urine Negative (Negative); Opiate Screen,Urine Negative (Negative); Phencyclidine Screen,Urine Negative (Negative)
[2019-04-21] MEDS ORDERED: MAGNESIUM OXIDE 400 MG TABLET PO SCH (09:00)
[2019-04-21] MEDS: MULTIVITAMIN (CENTRUM) TABLET PO SCH (10:09)
[2019-04-21] MEDS: FOLIC ACID 1 MG TABLET PO SCH (10:09)
[2019-04-21] MEDS: carvediloL 3.125 MG TABLET PO SCH (10:09)
[2019-04-21] MEDS: THIAMINE 100 MG TABLET PO SCH (10:09)
[2019-04-21] MEDS: SACUBITRIL/VALSARTAN 49-51 MG TABLET PO SCH (10:09)
[2019-04-21] MEDS: FUROSEMIDE 40 MG TABLET PO SCH (10:09)
[2019-04-21] MEDS: DEXTROSE 5% NACL 0.45% 1,000 ML IV SCH (11:08)
[2019-04-21] MEDS: PANTOPRAZOLE 40 MG VIAL IV SCH (11:08)
[2019-04-21 12:04] VITALS: BP 123/77
[2019-04-22] MEDS ORDERED: ERGOCALCIFEROL 50,000 UNIT CAPSULE PO SCH (09:00)
== END 2019-04-21 12:03 | disposition home or self-care (01) | DRG 378 ==
LOC: N.ED 14:19 → N.EDINP 16:13 → N.5E 16:53
PROVIDERS: ADMIT Internal Medicine; ATTEND Internal Medicine

== ENCOUNTER 2019-08-25 11:18 | Inpatient (IN) ==
[2019-08-25] MEDS ORDERED: AZITHROMYCIN INJ 500 MG in SODIUM CHLORIDE 0.9% 250 ML IV STA (11:41)
[2019-08-25] MEDS ORDERED: methylPREDNISolone SOD SUC 125 MG/2 ML VIAL IV STA (11:41)
[2019-08-25] MEDS ORDERED: SODIUM CHLORIDE 0.9% 1,000 ML IV STA (11:41)
[2019-08-25 12:25] LABS: Basophils % 0.3 % (0.0-0.8); Eosinophils % 0.3 % (0.00-10.9); Hematocrit 36.1 VOL% (42.0-52.0); Hemoglobin 11.5 GM/DL (14.0-18.0); Immature Granulocytes % 0.3 %; Immature Granulocytes Absolute 0.02 #; Lymphocytes # 1.1 10*3/uL (1.4-4.0); Lymphocytes % 16.9 % (21.2-54.2); Mean Corpuscular HGB Conc 31.9 GM/DL (32-36); Mean Corpuscular Volume 94.5 FL (87-102); Mean Platelet Volume 10.7 FL (9.6-12.0); Monocytes % 12.7 % (1.7-12.7); Neutrophils % 69.5 % (38.7-73.9); Platelet Count 270 T/CUMM (130-400); Red Blood Count 3.82 MC/CUMM (3.8-5.5); Red Cell Distribution Width 15.5 % (9.3-17.3); White Blood Count 6.2 T/CUMM (4-12)
[2019-08-25 12:36] LABS: PT Patient Result 10.5 SECS (9.8-11.9); Partial Thromboplastin Time 29.3 SECS (23.9-33.8)
[2019-08-25 12:57] LABS: Alanine Aminotransferase 15 U/L (16-61); Albumin 2.5 G/DL (3.4-5.0); Alkaline Phosphatase 117 U/L (45-117); Aspartate Amino Transferase 33 U/L (0-37); Blood Urea Nitrogen 18 MG/DL (7-18); Calcium 9.1 MG/DL (8.5-10.1); Estimated Glom Filtration Rate 104 ML/MIN; Ferritin 175.8 ng/ml (26-388); Glucose 97 MG/DL (74-106); Osmolality,Calculated 276.7 MOS/KG (273-304); Total Protein 7.2 G/DL (6.4-8.3); Troponin I 0.107 NG/ML (0.00-0.045)
[2019-08-25] MEDS ORDERED: POTASSIUM BICARB EFFERVESCENT 25 MEQ TABLET PO ONE (13:00)
[2019-08-25] MEDS ORDERED: POTASSIUM CHLORIDE RIDER 10 MEQ in PREMIX 1 EACH IV ONE (13:01)
[2019-08-25] MEDS ORDERED: POTASSIUM CHLORIDE RIDER 100 ML IV ONE (13:02)
[2019-08-25] MEDS ORDERED: cefTRIAXone 1,000 MG in SODIUM CHLORIDE 0.9% 100 ML IV STA (14:20)
[2019-08-25] MEDS ORDERED: GLUCAGON 1 MG VIAL IM PRN (15:40)
[2019-08-25] MEDS ORDERED: ONDANSETRON 4 MG/2 ML VIAL IV PRN (15:40)
[2019-08-25] MEDS ORDERED: DEXTROSE 50% 25 GM/50 ML VIAL IV PRN (15:40)
[2019-08-25] MEDS ORDERED: ACETAMINOPHEN 325 MG TABLET PO PRN (15:40)
[2019-08-25] MEDS ORDERED: POTASSIUM CHLORIDE 20 MEQ TABLET PO ONE (18:46)
[2019-08-25] MEDS ORDERED: ASPIRIN CHEW 81 MG TABLET PO ONE (18:47)
[2019-08-25] MEDS ORDERED: ENOXAPARIN 40 MG/0.4 ML SYRINGE SUBCUT ONE (18:48)
[2019-08-25] MEDS ORDERED: MAGNESIUM SULF RIDER 4 GM in PREMIX 1 EACH IV PRN (18:50)
[2019-08-25] MEDS ORDERED: MAGNESIUM SULF RIDER 2 GM in PREMIX 1 EACH IV PRN (18:50)
[2019-08-25] MEDS ORDERED: POTASSIUM CHLORIDE 20 MEQ/15 ML UDCUP PO ONE (18:57)
[2019-08-25 19:14] LABS: Calcium 8.3 MG/DL (8.5-10.1); Osmolality,Calculated 285.1 MOS/KG (273-304)
[2019-08-26 00:23] LABS: Basophils % 0.2 % (0.0-0.8); Hematocrit 30.6 VOL% (42.0-52.0); Hemoglobin 9.8 GM/DL (14.0-18.0); Immature Granulocytes % 0.5 %; Immature Granulocytes Absolute 0.03 #; Lymphocytes # 0.5 10*3/uL (1.4-4.0); Lymphocytes % 8.9 % (21.2-54.2); Mean Corpuscular Volume 94.4 FL (87-102); Mean Platelet Volume 10.6 FL (9.6-12.0); Monocytes % 5.6 % (1.7-12.7); Neutrophils % 84.8 % (38.7-73.9); Platelet Count 226 T/CUMM (130-400); Red Blood Count 3.24 MC/CUMM (3.8-5.5); White Blood Count 5.7 T/CUMM (4-12)
[2019-08-26 00:56] LABS: Calcium 8.2 MG/DL (8.5-10.1); Osmolality,Calculated 280.5 MOS/KG (273-304)
[2019-08-26] MEDS ORDERED: POTASSIUM CHLORIDE 20 MEQ/15 ML UDCUP PO SCH (01:00)
[2019-08-26] MEDS: POTASSIUM CHLORIDE 20 MEQ/15 ML UDCUP PO SCH ×4 (01:03→21:04)
[2019-08-26] MEDS: NICOTINE 7 MG/24 HR PATCH TRANSDERM SCH ×2 (01:10→09:44)
[2019-08-26 06:42] LABS: Apearance,Urine CLEAR (Clear); Bilirubin,Urine Small mg/dL (Negative); Blood, Urine Negative (Negative); Glucose,Urine (UA) Negative (Negative); Ketones,Urine 5 mg/dL (Negative); Mucus,Urine Few /LPF (Occasional); Nitrite,Urine Negative (Negative); Protein,Urine 30 MG/DL; RBC,Urine 2 /HPF (0-4); Squamous Epithelial Cell,Urine Occasional /HPF (0-10); Urine Color Amber (Yellow); Urine Specific Gravity > 1.060 (1.001-1.035); WBC,Urine 1 /HPF (0-6)
[2019-08-26] MEDS ORDERED: carvediloL 3.125 MG TABLET PO SCH (09:00)
[2019-08-26] MEDS ORDERED: FUROSEMIDE 40 MG TABLET PO SCH (09:00)
[2019-08-26] MEDS ORDERED: SACUBITRIL/VALSARTAN 49-51 MG TABLET PO SCH (09:00)
[2019-08-26] MEDS: MULTIVITAMIN (BEROCCA) TABLET PO SCH (09:40)
[2019-08-26] MEDS: FOLIC ACID INJ 1 MG in SYRINGE 1 EACH IV SCH ×2 (09:41→12:24)
[2019-08-26] MEDS: PANTOPRAZOLE 40 MG TABLET PO SCH (09:41)
[2019-08-26] MEDS: ASPIRIN EC 81 MG TABLET PO SCH (09:41)
[2019-08-26] MEDS: THIAMINE 200 MG/2 ML VIAL IV SCH (09:52)
[2019-08-26] MEDS ORDERED: AZITHROMYCIN INJ 500 MG in SODIUM CHLORIDE 0.9% 250 ML IV SCH (12:00)
[2019-08-26] MEDS: PARoxetine 10 MG TABLET PO SCH (12:25)
[2019-08-26] MEDS: cefTRIAXone 1,000 MG in SYRINGE 1 EACH IV SCH (15:20)
[2019-08-26] MEDS ORDERED: SODIUM CHLORIDE 0.9% 250 ML IV ONE (18:13)
[2019-08-26 18:30] LABS: Basophils % 0.1 % (0.0-0.8); Eosinophils % 0.1 % (0.00-10.9); Hematocrit 29.2 VOL% (42.0-52.0); Hemoglobin 9.3 GM/DL (14.0-18.0); Immature Granulocytes % 0.5 %; Immature Granulocytes Absolute 0.04 #; Lymphocytes # 1.4 10*3/uL (1.4-4.0); Lymphocytes % 17.9 % (21.2-54.2); Mean Corpuscular HGB Conc 31.8 GM/DL (32-36); Mean Corpuscular Volume 94.8 FL (87-102); Mean Platelet Volume 10.6 FL (9.6-12.0); Monocytes % 8.6 % (1.7-12.7); Neutrophils % 72.8 % (38.7-73.9); Platelet Count 260 T/CUMM (130-400); Red Blood Count 3.08 MC/CUMM (3.8-5.5); Red Cell Distribution Width 15.9 % (9.3-17.3); White Blood Count 7.5 T/CUMM (4-12)
[2019-08-26] MEDS ORDERED: DOBUTamine 500 MG/250 ML PREMIX IV PRN (20:00)
[2019-08-26 20:05] LABS: Apearance,Urine CLEAR (Clear); Bilirubin,Urine Negative (Negative); Blood, Urine Small mg/dL (Negative); Glucose,Urine (UA) Negative (Negative); Hyaline Casts,Urine 19 /LPF (0-3); Ketones,Urine Negative (Negative); Mucus,Urine Occasional /LPF (Occasional); Nitrite,Urine Negative (Negative); Protein,Urine Negative; RBC,Urine 7 /HPF (0-4); Urine Color Yellow (Yellow); Urine Specific Gravity 1.012 (1.001-1.035); WBC,Urine <1 /HPF (0-6)
[2019-08-26 20:16] LABS: Bilirubin,Total 0.6 MG/DL (0.2-1.0); Calcium 8.3 MG/DL (8.5-10.1); Osmolality,Calculated 279.5 MOS/KG (273-304); Total Protein 5.8 G/DL (6.4-8.3)
[2019-08-26] MEDS ORDERED: HALOPERIDOL 5 MG/ML AMP IM PRN (20:53)
[2019-08-26] MEDS: POTASSIUM CHLORIDE RIDER 10 MEQ in PREMIX 1 EACH IV SCH ×4 (21:03→23:54)
[2019-08-26 21:39] LABS: ABG Base Excess 23.7 MMOL/L (-2.5-2.5); ABG HCO3 48.3 MMOL/L (20-26); ABG Oxygen Saturation 96.2 % (95-100); ABG PCO2 52.5 MM HG (35-48); ABG PH 7.582 (7.35-7.45); ABG PO2 86.3 MM HG (80-95); Allen Test Positive
[2019-08-27 03:11] LABS: Calcium 8.2 MG/DL (8.5-10.1); Osmolality,Calculated 273.7 MOS/KG (273-304)
[2019-08-27] MEDS: POTASSIUM CHLORIDE RIDER 10 MEQ in PREMIX 1 EACH IV SCH ×7 (03:54→23:05)
[2019-08-27] MEDS ORDERED: LACTATED RINGERS 1,000 ML IV SCH (07:00)
[2019-08-27 07:30] LABS: Basophils % 0.1 % (0.0-0.8); Eosinophils % 0.2 % (0.00-10.9); Hematocrit 34.2 VOL% (42.0-52.0); Hemoglobin 10.7 GM/DL (14.0-18.0); Immature Granulocytes % 0.3 %; Immature Granulocytes Absolute 0.03 #; Lymphocytes # 1.2 10*3/uL (1.4-4.0); Lymphocytes % 13.3 % (21.2-54.2); Mean Corpuscular HGB Conc 31.3 GM/DL (32-36); Mean Platelet Volume 12.2 FL (9.6-12.0); Monocytes % 9.5 % (1.7-12.7); Neutrophils % 76.6 % (38.7-73.9); Platelet Count 240 T/CUMM (130-400); Red Blood Count 3.49 MC/CUMM (3.8-5.5); Red Cell Distribution Width 16.8 % (9.3-17.3)
[2019-08-27] MEDS ORDERED: LACTATED RINGERS IV SCH (07:30)
[2019-08-27] MEDS ORDERED: DEXTROSE 5% IV SCH (07:30)
[2019-08-27] MEDS ORDERED: POTASSIUM CHLORIDE IV SCH (07:30)
[2019-08-27] MEDS ORDERED: SODIUM CHLORIDE 0.9% 250 ML IV ONE (07:55)
[2019-08-27] MEDS ORDERED: ALBUTEROL/IPRATROPIUM 3 ML NEB RESP TX ONE (07:57)
[2019-08-27] MEDS ORDERED: LIDOCAINE 2% 5 ML VIAL ONE (09:00)
[2019-08-27] MEDS ORDERED: ETOMIDATE 20 MG/10 ML VIAL IV ONE (09:00)
[2019-08-27] MEDS ORDERED: PHENYLEPHRINE 1 MG/10 ML SYRINGE IV ONE (09:00)
[2019-08-27] MEDS: MULTIVITAMIN (BEROCCA) TABLET PO SCH (11:07)
[2019-08-27] MEDS: PANTOPRAZOLE 40 MG TABLET PO SCH (11:07)
[2019-08-27] MEDS: ASPIRIN EC 81 MG TABLET PO SCH (11:07)
[2019-08-27] MEDS: PARoxetine 10 MG TABLET PO SCH (11:07)
[2019-08-27] MEDS: BISACODYL 5 MG TABLET NG SCH ×2 (11:07→18:06)
[2019-08-27] MEDS: NICOTINE 7 MG/24 HR PATCH TRANSDERM SCH (11:08)
[2019-08-27] MEDS: THIAMINE 200 MG/2 ML VIAL IV SCH (11:09)
[2019-08-27] MEDS: AZITHROMYCIN 250 MG TABLET PO SCH (11:12)
[2019-08-27] MEDS: FOLIC ACID INJ 1 MG in SYRINGE 1 EACH IV SCH (11:18)
[2019-08-27] MEDS: cefTRIAXone 1,000 MG in SYRINGE 1 EACH IV SCH (13:45)
[2019-08-27] MEDS ORDERED: POLYETHYLENE GLYCOL 3350/ELECTROLYTES 4,000 ML BOTTLE NG ONE (18:00)
[2019-08-28] MEDS: POTASSIUM CHLORIDE RIDER 10 MEQ in PREMIX 1 EACH IV SCH (00:03)
[2019-08-28] MEDS: BISACODYL 5 MG TABLET NG SCH (02:15)
[2019-08-28 05:46] LABS: Basophils % 0.1 % (0.0-0.8); Eosinophils % 0.1 % (0.00-10.9); Hematocrit 32.3 VOL% (42.0-52.0); Hemoglobin 10.4 GM/DL (14.0-18.0); Immature Granulocytes % 0.4 %; Immature Granulocytes Absolute 0.05 #; Lymphocytes # 1.2 10*3/uL (1.4-4.0); Lymphocytes % 10.4 % (21.2-54.2); Mean Corpuscular HGB Conc 32.2 GM/DL (32-36); Mean Corpuscular Volume 93.1 FL (87-102); Mean Platelet Volume 11.4 FL (9.6-12.0); Monocytes % 9.6 % (1.7-12.7); Neutrophils % 79.4 % (38.7-73.9); Platelet Count 300 T/CUMM (130-400); Red Blood Count 3.47 MC/CUMM (3.8-5.5); Red Cell Distribution Width 16.5 % (9.3-17.3); White Blood Count 11.7 T/CUMM (4-12)
[2019-08-28 06:27] LABS: Calcium 8.5 MG/DL (8.5-10.1); Osmolality,Calculated 265.2 MOS/KG (273-304)
[2019-08-28] MEDS ORDERED: LACTATED RINGERS 1,000 ML IV SCH (06:30)
[2019-08-28] MEDS ORDERED: ETOMIDATE 20 MG/10 ML VIAL IV ONE (09:00)
[2019-08-28] MEDS ORDERED: propofoL 200 MG/20 ML VIAL IV ONE (09:00)
[2019-08-28] MEDS ORDERED: CALCIUM CHLORIDE 1,000 MG/10 ML SYRINGE IV ONE (09:00)
[2019-08-28] MEDS ORDERED: PHENYLEPHRINE 1 MG/10 ML SYRINGE IV ONE (09:00)
[2019-08-28] MEDS ORDERED: LIDOCAINE 100 MG/5 ML SYRINGE ONE (09:00)
[2019-08-28] MEDS: ASPIRIN EC 81 MG TABLET PO SCH (09:48)
[2019-08-28] MEDS: PANTOPRAZOLE 40 MG TABLET PO SCH (09:48)
[2019-08-28] MEDS: AZITHROMYCIN 250 MG TABLET PO SCH (09:48)
[2019-08-28] MEDS: PARoxetine 10 MG TABLET PO SCH (09:48)
[2019-08-28] MEDS: NICOTINE 7 MG/24 HR PATCH TRANSDERM SCH (09:48)
[2019-08-28] MEDS: MULTIVITAMIN (BEROCCA) TABLET PO SCH (09:48)
[2019-08-28] MEDS: FOLIC ACID INJ 1 MG in SYRINGE 1 EACH IV SCH (09:51)
[2019-08-28] MEDS: THIAMINE 200 MG/2 ML VIAL IV SCH (09:51)
[2019-08-28] MEDS: cefTRIAXone 1,000 MG in SYRINGE 1 EACH IV SCH (14:08)
[2019-08-28] MEDS: carvediloL 3.125 MG TABLET PO SCH ×2 (14:08→21:30)
[2019-08-29 05:33] LABS: Basophils % 0.1 % (0.0-0.8); Eosinophils % 0.4 % (0.00-10.9); Hematocrit 28.5 VOL% (42.0-52.0); Hemoglobin 9.1 GM/DL (14.0-18.0); Immature Granulocytes % 0.3 %; Immature Granulocytes Absolute 0.02 #; Lymphocytes # 1.2 10*3/uL (1.4-4.0); Lymphocytes % 17.6 % (21.2-54.2); Mean Corpuscular HGB Conc 31.9 GM/DL (32-36); Mean Corpuscular Volume 94.1 FL (87-102); Mean Platelet Volume 11.4 FL (9.6-12.0); Monocytes % 10.9 % (1.7-12.7); Neutrophils % 70.7 % (38.7-73.9); Platelet Count 245 T/CUMM (130-400); Red Blood Count 3.03 MC/CUMM (3.8-5.5); Red Cell Distribution Width 16.6 % (9.3-17.3); White Blood Count 7.1 T/CUMM (4-12)
[2019-08-29 06:12] LABS: Calcium 8.9 MG/DL (8.5-10.1)
[2019-08-29] MEDS: THIAMINE 200 MG/2 ML VIAL IV SCH (09:02)
[2019-08-29] MEDS: ASPIRIN EC 81 MG TABLET PO SCH (09:03)
[2019-08-29] MEDS: FOLIC ACID INJ 1 MG in SYRINGE 1 EACH IV SCH (09:03)
[2019-08-29] MEDS: AZITHROMYCIN 250 MG TABLET PO SCH (09:03)
[2019-08-29] MEDS: PARoxetine 10 MG TABLET PO SCH (09:04)
[2019-08-29] MEDS: carvediloL 3.125 MG TABLET PO SCH ×2 (09:04→21:10)
[2019-08-29] MEDS: PANTOPRAZOLE 40 MG TABLET PO SCH (09:04)
[2019-08-29] MEDS: NICOTINE 7 MG/24 HR PATCH TRANSDERM SCH (09:07)
[2019-08-29] MEDS: MULTIVITAMIN (BEROCCA) TABLET PO SCH (09:07)
[2019-08-29] MEDS: POTASSIUM CHLORIDE 20 MEQ/15 ML UDCUP PER TUBE PRN (09:10)
[2019-08-29] MEDS: POTASSIUM CHLORIDE 20 MEQ TABLET PO SCH ×2 (10:48→21:23)
[2019-08-29] MEDS: cefTRIAXone 1,000 MG in SYRINGE 1 EACH IV SCH (14:30)
[2019-08-29] MEDS: MIRTAZAPINE 15 MG TABLET PO SCH (21:10)
[2019-08-29] MEDS ORDERED: SODIUM CHLORIDE 0.9% 1,000 ML IV ONE (23:40)
[2019-08-30 04:43] LABS: Calcium 8.3 MG/DL (8.5-10.1); Osmolality,Calculated 276.5 MOS/KG (273-304)
[2019-08-30 04:54] LABS: Eosinophils % 0.5 % (0.00-10.9); Hematocrit 25.4 VOL% (42.0-52.0); Immature Granulocytes % 0.3 %; Immature Granulocytes Absolute 0.02 #; Lymphocytes # 1.1 10*3/uL (1.4-4.0); Lymphocytes % 19.5 % (21.2-54.2); Mean Corpuscular HGB Conc 31.5 GM/DL (32-36); Mean Corpuscular Volume 94.4 FL (87-102); Mean Platelet Volume 11.5 FL (9.6-12.0); Monocytes % 12.3 % (1.7-12.7); Neutrophils % 67.4 % (38.7-73.9); Platelet Count 283 T/CUMM (130-400); Red Blood Count 2.69 MC/CUMM (3.8-5.5); Red Cell Distribution Width 17.3 % (9.3-17.3); White Blood Count 5.9 T/CUMM (4-12)
[2019-08-30] MEDS: THIAMINE 200 MG/2 ML VIAL IV SCH (08:14)
[2019-08-30] MEDS: NICOTINE 7 MG/24 HR PATCH TRANSDERM SCH (08:14)
[2019-08-30] MEDS: MULTIVITAMIN (BEROCCA) TABLET PO SCH (08:15)
[2019-08-30] MEDS: PANTOPRAZOLE 40 MG TABLET PO SCH ×3 (08:15→20:59)
[2019-08-30] MEDS: ASPIRIN EC 81 MG TABLET PO SCH (08:15)
[2019-08-30] MEDS: PARoxetine 10 MG TABLET PO SCH (08:15)
[2019-08-30] MEDS: FOLIC ACID 0.4 MG TABLET PO SCH (08:15)
[2019-08-30] MEDS: carvediloL 3.125 MG TABLET PO SCH ×2 (08:15→21:00)
[2019-08-30] MEDS ORDERED: SODIUM CHLORIDE 0.9% 1,000 ML IV PRN (08:32)
[2019-08-30] MEDS: cefTRIAXone 1,000 MG in SYRINGE 1 EACH IV SCH (14:26)
[2019-08-30 20:17] LABS: Calcium 8.3 MG/DL (8.5-10.1); Osmolality,Calculated 277.5 MOS/KG (273-304)
[2019-08-30] MEDS: MIRTAZAPINE 15 MG TABLET PO SCH (21:00)
[2019-08-31 06:09] LABS: Basophils % 0.2 % (0.0-0.8); Eosinophils # 0.1 10*3/uL (0.0-0.87); Eosinophils % 1.1 % (0.00-10.9); Hematocrit 26.9 VOL% (42.0-52.0); Hemoglobin 8.5 GM/DL (14.0-18.0); Immature Granulocytes % 0.2 %; Immature Granulocytes Absolute 0.01 #; Lymphocytes # 1.2 10*3/uL (1.4-4.0); Lymphocytes % 25.7 % (21.2-54.2); Mean Corpuscular HGB Conc 31.6 GM/DL (32-36); Mean Corpuscular Volume 95.7 FL (87-102); Monocytes % 11.6 % (1.7-12.7); Neutrophils % 61.2 % (38.7-73.9); Platelet Count 283 T/CUMM (130-400); Red Blood Count 2.81 MC/CUMM (3.8-5.5); Red Cell Distribution Width 17.4 % (9.3-17.3); White Blood Count 4.7 T/CUMM (4-12)
[2019-08-31 06:35] LABS: Calcium 8.5 MG/DL (8.5-10.1); Osmolality,Calculated 273.7 MOS/KG (273-304)
[2019-08-31] MEDS: MULTIVITAMIN (BEROCCA) TABLET PO SCH (08:27)
[2019-08-31] MEDS: FOLIC ACID 0.4 MG TABLET PO SCH (08:27)
[2019-08-31] MEDS: PARoxetine 20 MG TABLET PO SCH (08:27)
[2019-08-31] MEDS: ASPIRIN EC 81 MG TABLET PO SCH (08:27)
[2019-08-31] MEDS: PANTOPRAZOLE 40 MG TABLET PO SCH ×2 (08:27→21:09)
[2019-08-31] MEDS: carvediloL 3.125 MG TABLET PO SCH ×2 (08:28→21:13)
[2019-08-31] MEDS: NICOTINE 7 MG/24 HR PATCH TRANSDERM SCH (08:28)
[2019-08-31] MEDS: THIAMINE 200 MG/2 ML VIAL IV SCH (08:34)
[2019-08-31] MEDS: cefTRIAXone 1,000 MG in SYRINGE 1 EACH IV SCH (14:11)
[2019-08-31] MEDS: MIRTAZAPINE 15 MG TABLET PO SCH (21:13)
[2019-09-01 04:54] LABS: Basophils % 0.7 % (0.0-0.8); Eosinophils # 0.1 10*3/uL (0.0-0.87); Eosinophils % 1.5 % (0.00-10.9); Hematocrit 29.7 VOL% (42.0-52.0); Immature Granulocytes % 0.5 %; Immature Granulocytes Absolute 0.02 #; Lymphocytes # 1.4 10*3/uL (1.4-4.0); Lymphocytes % 33.7 % (21.2-54.2); Mean Corpuscular HGB Conc 30.3 GM/DL (32-36); Mean Corpuscular Volume 99.3 FL (87-102); Neutrophils % 47.6 % (38.7-73.9); Platelet Count 243 T/CUMM (130-400); Red Blood Count 2.99 MC/CUMM (3.8-5.5); Red Cell Distribution Width 17.5 % (9.3-17.3); White Blood Count 4.1 T/CUMM (4-12)
[2019-09-01 05:30] LABS: Lymphocytes 38 % (20-55); Platelet Estimate Adequate; Segmented Neutrophils 50 % (50-85); Total Cells Counted 100
[2019-09-01 05:31] LABS: Hypochromasia 1+
[2019-09-01 06:00] LABS: Calcium 8.4 MG/DL (8.5-10.1); Osmolality,Calculated 276.4 MOS/KG (273-304)
[2019-09-01] MEDS: carvediloL 3.125 MG TABLET PO SCH ×2 (08:29→21:05)
[2019-09-01] MEDS: ASPIRIN EC 81 MG TABLET PO SCH (08:29)
[2019-09-01] MEDS: FOLIC ACID 0.4 MG TABLET PO SCH (08:29)
[2019-09-01] MEDS: PANTOPRAZOLE 40 MG TABLET PO SCH ×2 (08:29→21:06)
[2019-09-01] MEDS: PARoxetine 20 MG TABLET PO SCH (08:29)
[2019-09-01] MEDS: MULTIVITAMIN (BEROCCA) TABLET PO SCH (08:29)
[2019-09-01] MEDS: NICOTINE 7 MG/24 HR PATCH TRANSDERM SCH (08:31)
[2019-09-01] MEDS: THIAMINE 200 MG/2 ML VIAL IV SCH (08:32)
[2019-09-01] MEDS: cefTRIAXone 1,000 MG in SYRINGE 1 EACH IV SCH (14:19)
[2019-09-01] MEDS: SODIUM CHLORIDE 0.9% 250 ML IV SCH ×2 (18:10→21:39)
[2019-09-01] MEDS: MIRTAZAPINE 15 MG TABLET PO SCH (21:06)
[2019-09-02] MEDS: SODIUM CHLORIDE 0.9% 1,000 ML IV SCH ×2 (01:00→18:20)
[2019-09-02] MEDS: SODIUM CHLORIDE 0.9% 250 ML IV SCH ×2 (04:21→04:22)
[2019-09-02 06:10] LABS: Basophils % 0.3 % (0.0-0.8); Eosinophils % 1.1 % (0.00-10.9); Hematocrit 25.2 VOL% (42.0-52.0); Hemoglobin 8.2 GM/DL (14.0-18.0); Lymphocytes # 1.2 10*3/uL (1.4-4.0); Lymphocytes % 32.7 % (21.2-54.2); Mean Corpuscular HGB Conc 32.5 GM/DL (32-36); Mean Platelet Volume 10.6 FL (9.6-12.0); Monocytes % 17.4 % (1.7-12.7); Neutrophils % 48.5 % (38.7-73.9); Platelet Count 278 T/CUMM (130-400); Red Blood Count 2.71 MC/CUMM (3.8-5.5); Red Cell Distribution Width 17.2 % (9.3-17.3); White Blood Count 3.7 T/CUMM (4-12)
[2019-09-02 06:12] LABS: Osmolality,Calculated 277.4 MOS/KG (273-304)
[2019-09-02 06:47] LABS: Eosinophils 2 % (0-10); Hypochromasia 1+; Lymphocytes 29 % (20-55); Ovalocytes Slight; Platelet Estimate Adequate; Segmented Neutrophils 51 % (50-85); Total Cells Counted 100
[2019-09-02] MEDS: POTASSIUM CHLORIDE 20 MEQ/15 ML UDCUP PER TUBE PRN ×3 (07:00→14:32)
[2019-09-02] MEDS: THIAMINE 200 MG/2 ML VIAL IV SCH (08:00)
[2019-09-02] MEDS: NICOTINE 7 MG/24 HR PATCH TRANSDERM SCH (08:00)
[2019-09-02] MEDS: carvediloL 3.125 MG TABLET PO SCH (08:01)
[2019-09-02] MEDS: MULTIVITAMIN (BEROCCA) TABLET PO SCH (08:01)
[2019-09-02] MEDS: PARoxetine 20 MG TABLET PO SCH (08:01)
[2019-09-02] MEDS: PANTOPRAZOLE 40 MG TABLET PO SCH ×2 (08:01→21:08)
[2019-09-02] MEDS: ASPIRIN EC 81 MG TABLET PO SCH (08:01)
[2019-09-02] MEDS: FOLIC ACID 0.4 MG TABLET PO SCH (08:01)
[2019-09-02] MEDS: cefTRIAXone 1,000 MG in SYRINGE 1 EACH IV SCH (14:31)
[2019-09-02] MEDS: MIRTAZAPINE 15 MG TABLET PO SCH (21:08)
[2019-09-02] MEDS: MAGNESIUM CHLORIDE 64 MG TABLET PO SCH (21:08)
[2019-09-03 05:30] LABS: Basophils % 0.2 % (0.0-0.8); Eosinophils % 0.7 % (0.00-10.9); Hemoglobin 8.3 GM/DL (14.0-18.0); Immature Granulocytes % 0.2 %; Immature Granulocytes Absolute 0.01 #; Lymphocytes # 1.3 10*3/uL (1.4-4.0); Lymphocytes % 30.4 % (21.2-54.2); Mean Corpuscular HGB Conc 31.9 GM/DL (32-36); Mean Corpuscular Volume 93.9 FL (87-102); Mean Platelet Volume 10.6 FL (9.6-12.0); Monocytes % 12.4 % (1.7-12.7); Neutrophils % 56.1 % (38.7-73.9); Platelet Count 303 T/CUMM (130-400); Red Blood Count 2.77 MC/CUMM (3.8-5.5); Red Cell Distribution Width 17.2 % (9.3-17.3); White Blood Count 4.1 T/CUMM (4-12)
[2019-09-03 05:57] LABS: Anisocytosis 1+; Hypochromasia Slight
[2019-09-03 05:58] LABS: Microcytosis 1+; Ovalocytes Slight; Platelet Estimate Normal
[2019-09-03 06:01] LABS: Calcium 8.1 MG/DL (8.5-10.1); Osmolality,Calculated 276.4 MOS/KG (273-304)
[2019-09-03] MEDS: MAGNESIUM CHLORIDE 64 MG TABLET PO SCH (09:27)
[2019-09-03] MEDS: PANTOPRAZOLE 40 MG TABLET PO SCH (09:27)
[2019-09-03] MEDS: MULTIVITAMIN (BEROCCA) TABLET PO SCH (09:27)
[2019-09-03] MEDS: ASPIRIN EC 81 MG TABLET PO SCH (09:27)
[2019-09-03] MEDS: FOLIC ACID 0.4 MG TABLET PO SCH (09:27)
[2019-09-03] MEDS: NICOTINE 7 MG/24 HR PATCH TRANSDERM SCH (09:28)
[2019-09-03] MEDS: PARoxetine 20 MG TABLET PO SCH (09:28)
[2019-09-03] MEDS: THIAMINE 200 MG/2 ML VIAL IV SCH (09:56)
[2019-09-03] MEDS ORDERED: carvediloL 3.125 MG TABLET PO SCH (11:00)
[2019-09-03 12:05] VITALS: BP 100/81
== END 2019-09-03 12:16 | disposition swing bed (61) | DRG 640 ==
LOC: SUATTDRO → EDUNIT# → EDBD → EDSEX → N.ED 11:18 → N.EDINP 15:40 → SUATTDRO 15:40 → N.4E 17:55 → N.TELES 20:29 → N.4E 08-26 17:46 → N.CVR 08-26 18:47 → N.TELES 08-27 17:53 → N.4E 08-29 11:06
PROVIDERS: ADMIT Internal Medicine; ATTEND Internal Medicine

== ENCOUNTER 2019-10-03 18:59 | Observation (INO) ==
[2019-10-03 20:27] LABS: Basophils % 0.3 % (0.0-0.8); Eosinophils # 0.1 10*3/uL (0.0-0.87); Eosinophils % 0.8 % (0.00-10.9); Hematocrit 28.2 VOL% (42.0-52.0); Hemoglobin 8.4 GM/DL (14.0-18.0); Immature Granulocytes % 0.3 %; Immature Granulocytes Absolute 0.02 #; Lymphocytes # 1.4 10*3/uL (1.4-4.0); Lymphocytes % 19.9 % (21.2-54.2); Mean Corpuscular HGB Conc 29.8 GM/DL (32-36); Mean Corpuscular Volume 91.6 FL (87-102); Mean Platelet Volume 10.1 FL (9.6-12.0); Monocytes % 14.9 % (1.7-12.7); Neutrophils % 63.8 % (38.7-73.9); Platelet Count 409 T/CUMM (130-400); Red Blood Count 3.08 MC/CUMM (3.8-5.5); Red Cell Distribution Width 17.6 % (9.3-17.3); White Blood Count 7.1 T/CUMM (4-12)
[2019-10-03 20:46] LABS: Albumin 2.8 G/DL (3.4-5.0); Bilirubin,Total 0.5 MG/DL (0.2-1.0); Calcium 8.5 MG/DL (8.5-10.1); Total Protein 6.8 G/DL (6.4-8.3)
[2019-10-03 20:49] LABS: Eosinophils 1 % (0-10); Lymphocytes 23 % (20-55); Microcytosis 2+; Segmented Neutrophils 67 % (50-85); Total Cells Counted 100
[2019-10-03 20:50] LABS: Hypochromasia 2+; Platelet Estimate Adequate; Polychromasia Few; Stomatocytes 1+
[2019-10-03] MEDS ORDERED: FUROSEMIDE 40 MG/4 ML VIAL IV STA (21:06)
[2019-10-03] MEDS ORDERED: ONDANSETRON 4 MG/2 ML VIAL IV PRN (21:18)
[2019-10-03] MEDS ORDERED: ACETAMINOPHEN 325 MG TABLET PO PRN (21:18)
[2019-10-03] MEDS ORDERED: MAGNESIUM SULF RIDER 4 GM in PREMIX 1 EACH IV PRN (21:18)
[2019-10-03] MEDS ORDERED: GLUCAGON 1 MG VIAL IM PRN (21:18)
[2019-10-03] MEDS ORDERED: MAGNESIUM SULF RIDER 2 GM in PREMIX 1 EACH IV PRN (21:18)
[2019-10-03] MEDS ORDERED: DEXTROSE 50% 25 GM/50 ML VIAL IV PRN (21:18)
[2019-10-03] MEDS ORDERED: POTASSIUM CHLORIDE 20 MEQ TABLET PO STA (21:26)
[2019-10-03] MEDS: ENOXAPARIN 40 MG/0.4 ML SYRINGE SUBCUT SCH (21:48)
[2019-10-04 07:34] LABS: Basophils % 0.3 % (0.0-0.8); Eosinophils # 0.1 10*3/uL (0.0-0.87); Eosinophils % 0.8 % (0.00-10.9); Hematocrit 28.3 VOL% (42.0-52.0); Hemoglobin 8.3 GM/DL (14.0-18.0); Immature Granulocytes % 0.3 %; Immature Granulocytes Absolute 0.02 #; Lymphocytes # 1.4 10*3/uL (1.4-4.0); Lymphocytes % 23.4 % (21.2-54.2); Mean Corpuscular HGB Conc 29.3 GM/DL (32-36); Mean Corpuscular Volume 91.3 FL (87-102); Mean Platelet Volume 10.7 FL (9.6-12.0); Monocytes % 17.2 % (1.7-12.7); Platelet Count 358 T/CUMM (130-400); Red Cell Distribution Width 17.6 % (9.3-17.3); White Blood Count 6.1 T/CUMM (4-12)
[2019-10-04 08:00] LABS: Albumin 2.8 G/DL (3.4-5.0); Bilirubin,Total 0.6 MG/DL (0.2-1.0); Calcium 8.7 MG/DL (8.5-10.1); Osmolality,Calculated 285.7 MOS/KG (273-304); Total Protein 6.8 G/DL (6.4-8.3)
[2019-10-04 08:27] LABS: Hypochromasia 2+; Lymphocytes 19 % (20-55); Segmented Neutrophils 65 % (50-85); Total Cells Counted 100
[2019-10-04 08:28] LABS: Microcytosis 1+; Platelet Estimate Normal; Polychromasia Slight; Target Cells Slight
[2019-10-04] MEDS: FUROSEMIDE 40 MG/4 ML VIAL IV SCH ×2 (09:06→15:23)
[2019-10-04] MEDS: POTASSIUM CHLORIDE 20 MEQ TABLET PO PRN ×4 (09:10→22:44)
[2019-10-04] MEDS: PANTOPRAZOLE 40 MG TABLET PO SCH (09:10)
[2019-10-04] MEDS: ENOXAPARIN 40 MG/0.4 ML SYRINGE SUBCUT SCH (21:11)
[2019-10-05] MEDS: POTASSIUM CHLORIDE 20 MEQ TABLET PO PRN (01:06)
[2019-10-05 04:45] LABS: Basophils % 0.1 % (0.0-0.8); Eosinophils % 0.5 % (0.00-10.9); Hematocrit 24.4 VOL% (42.0-52.0); Hemoglobin 7.2 GM/DL (14.0-18.0); Immature Granulocytes % 0.3 %; Immature Granulocytes Absolute 0.02 #; Lymphocytes # 1.7 10*3/uL (1.4-4.0); Lymphocytes % 23.2 % (21.2-54.2); Mean Corpuscular HGB Conc 29.5 GM/DL (32-36); Mean Corpuscular Volume 90.7 FL (87-102); Mean Platelet Volume 10.7 FL (9.6-12.0); Monocytes % 15.4 % (1.7-12.7); Neutrophils % 60.5 % (38.7-73.9); Platelet Count 357 T/CUMM (130-400); Red Blood Count 2.69 MC/CUMM (3.8-5.5); White Blood Count 7.5 T/CUMM (4-12)
[2019-10-05 05:07] LABS: Eosinophils 3 % (0-10); Lymphocytes 23 % (20-55); Platelet Estimate Adequate; Segmented Neutrophils 55 % (50-85); Total Cells Counted 100
[2019-10-05 05:08] LABS: Hypochromasia 2+; Microcytosis Slight
[2019-10-05 05:14] LABS: Osmolality,Calculated 279.4 MOS/KG (273-304)
[2019-10-05] MEDS: FUROSEMIDE 40 MG/4 ML VIAL IV SCH (08:31)
[2019-10-05] MEDS: PANTOPRAZOLE 40 MG TABLET PO SCH (08:34)
[2019-10-05 10:54] LABS: % Iron Saturation 5.3 % (18-50)
[2019-10-05 11:00] LABS: Hemoglobin 7.6 GM/DL (14.0-18.0)
[2019-10-05 11:35] LABS: Folate > 24.0 NG/ML (5.4-24.0); Vitamin B12 878 PG/ML (211-911)
[2019-10-05] MEDS ORDERED: FERRIC GLUCONATE COMPLEX 125 MG in SODIUM CHLORIDE 0.9% 100 ML IV ONE (12:30)
[2019-10-05 13:58] VITALS: BP 114/78
== END 2019-10-05 15:40 | disposition home or self-care (01) ==
LOC: N.EDINP 18:59 → N.ED 18:59 → N.EDINP 22:18 → N.3E 22:26
PROVIDERS: ADMIT Internal Medicine; ATTEND Internal Medicine